=== PATIENT | male | born 1990 | race Caucasian/White ===

== ENCOUNTER 2017-10-29 03:29 | Emergency (ER) | payer MEDICARE, MEDICAID ==
[~2017-10-29] VITALS: Ht 185.4 cm; Wt 120.7 kg
[2017-10-29 03:30] VITALS: BP 159/105
== END 2017-10-29 05:31 | disposition home or self-care (01) ==
LOC: ED 05:00
DX: M79.672 Pain in left foot (principal)
CPT/HCPCS: 99284